=== PATIENT | male | born 1965 | race Two or more races ===

== ENCOUNTER 2023-09-04 09:32 | Outpatient (AMB) | payer OTHER, SELFPAY ==
--- NOTE | 2023-09-04 09:39 | A.OFFPC_ITS ---
Vital Signs 09/04/23 09:46 Height 5 ft 10 in Weight 251 lb 4 oz BMI 36.0 BP 124/76 Blood Pressure Location Rt brachial Position Sitting Respiration 13 Pulse 69 Pulse Source Pulse Oximeter Temp 97 F Temp Source Temporal Artery Scan Pulse Oximetry (%) 97 Oxygen Delivery Method Room Air Intake Visit Reasons: est Care Bander Operator Required: Yes Bander Operator Name: [id number] ([id number]) Accompanied by: Spouse Allergies No Known Allergies Allergy (Verified 09/04/23 10:00) Medication List - Last Reconciled 09/04/23 by Demetria Mireles CNP No Known Home Meds Tobacco use date assessed: 09/04/23 Dental Screening Dental Screen Date: 09/04/23 Did you have a dental visit in the last 12 months?: Yes Did you have a dental problem in the last 6 months where you did not have access to dental care?: No Was dental information given to patient?: Patient has dentist HPI HPI Comments History of Present Illness Details New patient 57-year-old Japanese-speaking male, accom panied by his , presents to establish care Prior PCP:?Does not recall name of practice or PCP Last office visit/CPE: About 5 years Acute issue(s): Reports intermittent right shoulder pain radiating down to his arm, right knee pain , and low back pain for the past 2 months. He notes that he worked in forestry for 25 years while and climbed [place], [facility] [place]. He currently does electrical work in the railway. He has been taking Naproxen and applying ice with some relief. He attributes his symptoms to strenuous posture related to his current and previous jobs. He notes that the knee is the most bothersome. No acute symptoms at this time Not on prescription medications PMHx: None SurgHx: None FHx: Father: Alzheimer's SocHx: Nonsmoker. Drinks alcohol occasionally. No recreational drugs. Last colonoscopy 5 years ago: normal Interpretation by professional entry engineer via electronic tablet [facility] Medical History (Updated 09/04/23 @ 10:56 by Demetria Mireles CNP) Back pain Knee pain Surgical History (Updated 09/04/23 @ 10:16 by Ciera Liu MA) H/O colonoscopy Family History (Updated 09/04/23 @ 10:18 by Ciera Liu MA) Father AD (Alzheimer's disease) Social History Housing: House Patient Tobacco Use Status: Never used Tobacco e-Cigarette/Vaping Use: Never Used service: No Current occupational status: employed Current occupation: Home Sales Consultant for [employer] Cognitive needs: No Hearing needs: No Vision needs: No Questionnaire PHQ-9 Over the last 2 weeks, how often have you been bothered by any of the following problems? 1. Little interest or pleasure in doing things: not at all 2. Feeling down, depressed, or hopeless: several days 3. Trouble falling or staying asleep, or sleeping too much: not at all 4. Feeling tired or having little energy: nearly every day 5. Poor appetite or overeating: not at all 6. Feeling bad about yourself - or that you are a failure or have let yourself or your family down: several days 7. Trouble concentrating on things, such as reading the newspaper or watching television: not at all 8. Moving or speaking so slowly that other people could have noticed. Or the opposite - being so fidgety or restless that you have been moving around a lot more than usual: not at all 9. Thoughts that you would be better off or of hurting yourself in some way: not at all Total score: 5 Depression Screening Interpretation: Positive Depression Screening Done: Yes 36493 - PHQ-9 Billing: Yes Source: Developed by Drs. Matt Hall, Poppy Espinoza, Clyde Johnson and colleagues, with an educational todd from [employer]. Thrive Questionnaire Date Thrive assessed: 09/04/23 I am a: Patient What is your living situation today?: I have a steady place to live Within the past 12 months, did the food you bought not last and you didn't have the money to get more?: Never true Within the past 12 months, did you worry whether your food would run out before you got money to buy more?: Never true Do you have trouble paying for medicines?: No Do you have trouble getting transportation to medical appointments?: No Do you have trouble paying your heating and electricity bill?: No Do you have trouble taking care of your child, family member or friend?: No Do you have trouble with day-to-day activities such as bathing, preparing meals, shopping, managing finances, etc.?: No Are you currently unemployed and looking for a job?: No Are you interested in more education?: No Please select the resources that you would like help with: None Currently or been in a relationship where the following occur: no concerns reported THRIVE Score: 0 AUDIT C Alcohol Use Questionnaire (AUDIT-C) 1. How often do you have a drink containing alcohol?: Monthly or less 2. How many drinks containing alcohol do you have on a typical day when you are drinking?: 1 or 2 3. How often do you have six or more drinks on one occasion?: Never Total Score: 1 DERIK-7 AMB Questionnaire DERIK-7 Date DERIK - 7 assessed: 09/04/23 Feeling nervous, anxious, or on edge: 0 = Not at all Not being able to stop or control worryin = Not at all Worrying too much about different things: 0 = Not at all Trouble relaxin = Not at all Being so restless that it is hard to sit still: 0 = Not at all Becoming easily annoyed or irritable: 2 = More than half the days Feeling afraid as if something awful might happen: 0 = Not at all Total DERIK-7 score (0-4 normal; 5-9 mild; 10-14 moderate; 15-21 severe): 2 Source: Developed by Drs. Matt Hall, Poppy Espinoza, Clyde Johnson and colleagues, with an educational todd from [employer]. DERIK-7 Assessment Billing DERIK-7 Assessment Tool: DERIK-7 Assessment 24824 Review of Systems Const Details: Const Denies chills, Denies fatigue, Denies fever(s), Denies headache(s) and Denies weakness ENT Denies dizziness and Denies headache(s) Card Denies chest pain, Denies lightheadedness, Denies dyspnea and Denies other (Palpitations) Resp Denies cough, Denies dyspnea, Denies wheezing and Denies other ( shortness of breath) GI Denies abdominal pain, Denies melena, Denies hematochezia, Denies change in bowel habits, Denies dyspepsia and Denies nausea Denies hematuria and Denies dysuria Musc Reports as per HPI Skin/Breast Denies rash, Denies unusual bruising and Denies wounds Neuro Denies abnormal gait, Denies dizziness, Denies headache(s), Denies memory loss, Denies numbness, Denies Sensory deficit (Neuro), Denies tingling and Denies weakness Psych Denies anxiety, Denies depression, Denies memory loss Endo Denies cold intolerance, Denies fatigue, Denies heat intolerance, Denies polydipsia and Denies polyuria Aller/Immun Denies wheezing Physical exam (Primary Care) Vital Signs: Last Vital Signs Temp 97 F 09/04/23 09:46 Pulse 69 09/04/23 09:46 Resp 13 09/04/23 09:46 BP 124/76 09/04/23 09:46 Pulse Ox 97 09/04/23 09:46 Oxygen Delivery Method Room Air 09/04/23 09:46 BMI result Body Mass Index 36.0 Tobacco/Smoking Status: Tobacco use Status Tobacco use date assessed 09/04/23 09/04/23 09:59 Patient Tobacco Use Status Never used Tobacco 09/04/23 09:59 e-Cigarette/Vaping Use Never Used 09/04/23 09:59 PHQ-9: PHQ-9 Score PHQ-9: Total score 5 09/04/23 10:28 Depression Screening Interpretation: Positive Thrive Assessment: Date of Thrive Assessment Date Thrive assessed 09/04/23 09/04/23 10:28 Currently or been in a relationship where the following occur: no concerns reported Const Other: General: no acute distress and well developed Nutritional Appearance: well nourished Orientation/consciousness: patient oriented x3 HENMT Head: Yes normocephalic and Yes atraumatic Eyes General: appearance normal, both eyes and all related structures Pupils: Equal, round and reactive pupils present EOM: EOMs intact bilaterally Resp Effort & Inspection: normal respiratory effort Auscultation: clear to auscultation bilaterally Cardio Rate: regular rate Rhythm: regular rhythm Heart sounds: S1 normal heart sound present, S2 normal heart sound present, no gallops, no murmurs and no rubs GI Palpation (GI): No Abdominal aortic bruit present, Soft to palpation, nontender, No hepatosplenomegaly present and No Rebound tenderness present Auscultation: normal bowel sounds General: Yes no CVA tenderness Back/Spine/Pelvis Back: no CVA tenderness Cervical Spine: cervical ROM normal and No Cervical spine tenderness Thoracic/Lumbar Spine: thoraco-lumbar ROM normal, No pain with thoraco-lumbar ROM, No thoracic spinal tenderness and No lumbar spinal tenderness Extrem General: Yes normal to inspection, No edema and No calf tenderness Skin General: warm and dry. Normal skin color. Normal skin turgor Neuro General: patient oriented x3, gait normal and no focal neuro deficit Cranial nerves: Yes Equal, round and reactive pupils present Cognition (Neuro): normal cognition Gait exam (Neuro): Normal gait present Sensory Exam: No Sensory deficit (Neuro) Psych Appearance: grossly normal Affect: normal affect Attitude: cooperative Thought process: Normal thought process present Assessment and Plan Assessment & Plan (1) Right knee pain: Code(s): M25.561 - Pain in right knee Plan: Reports intermittent right shoulder pain radiating down to his arm, right knee pain , and low back pain for the past 2 month; likely related to poor posture during work No visible signs of injury or trauma noted No tenderness with palpation Tendinitis or arthritis is likely Naproxen as needed Warm/cold compresses encouraged Instructed on proper body mechanics Referred to physical therapy for right knee pain Follow-up in 1 month for an extended physical exam and labs review Return sooner with worsening or new symptoms Verbalized understanding and agreed with treatment plan (2) Right shoulder pain: Code(s): M25.511 - Pain in right shoulder Plan: As above (3) Low back pain: Code(s): M54.50 - Low back pain, unspecified Plan: As above (4) Laboratory tests ordered as part of a complete physical exam (CPE): Code(s): Z00.00 - Encounter for general adult medical examination without abnormal findings Plan: Fasting labs ordered in preparation of a complete physical exam. Advised to fast for at least 10 hours before getting labs drawn. May drink water Verbalized understanding and agreed with treatment plan. Orders: Orders Complete Blood Count Auto Diff Today Z00.00 - Encounter for general adult medical examination without abnormal findings Comprehensive [place]. Panel Fast Today Z00.00 - Encounter for general adult medical examination without abnormal findings Lipid Panel Today Z00.00 - Encounter for general adult medical examination without abnormal findings TSH reflex Free T4 Today Z00.00 - Encounter for general adult medical examination without abnormal findings UA CC w/rflx Micro + Cult Today Z00.00 - Encounter for general adult medical examination without abnormal findings PSA, Ultra Sensitive Today Z00.00 - Encounter for general adult medical examination without abnormal findings PT Evaluation and Treatment Today M25.561 - Pain in right knee Coding Level of Care Code New Pt Level 4 (10129) Diagnoses Right knee pain M25.561 Right shoulder pain M25.511 Low back pain M54.50 Laboratory tests ordered as part of a complete physical exam (CPE) Z00.00 Additional Codes DERIK-7 Assessment Billing - DERIK-7 Assessment Tool: DERIK-7 Assessment 50847 ([id number])
[2023-09-04 09:46] VITALS: BP 124/76; PULSE 69; RESP 13; TEMP 36.1; O2SAT 97; BMI 36.0
== END 2023-09-04 11:17 | disposition home or self-care (01) ==
PROVIDERS: Visit Provider Nurse Practitioner Family
DX: M25.561 Pain in right knee (principal); M25.511 Pain in right shoulder; M54.50 Low back pain, unspecified; Z00.00 Encounter for general adult medical examination without abnormal findings
CPT/HCPCS: 99204

== ENCOUNTER 2023-09-04 11:27 | Outpatient (REF) | payer OTHER, SELFPAY ==
[2023-09-04 14:24] LABS: MANUAL DIFF FLAG NO
[2023-09-04 14:27] LABS: Appearance Urine Clear; Color Urine Yellow; Glucose Urine UA Negative (Negative); Leukocyte Esterase Urine Negative (Negative); Nitrite Urine Negative (Negative); PH 6.5 (5.0-9.0); Specific Gravity - Urine 1.025 (1.005-1.025); Urine Blood Negative (Negative); Urine Ketones Negative (Negative); Urine Protein Negative (Neg-Trace)
[2023-09-04 14:36] LABS: Basophils Percent Auto 0.4 % (0-2); Eosinophils Absolute Auto 0.1 X10*3/uL (0.0-0.4); Eosinophils Percent Auto 1.1 % (0-4); Hematocrit 48.5 % (42.0-52.0); Hemoglobin 16.1 g/dl (14.0-18.0); Imm Gran Abs Auto 0.05 X10*3/uL (0.00-0.03); Imm Gran Pct Auto 0.7 % (0.0-0.4); Lymphocytes Absolute Auto 2.8 X10*3/uL (1.2-4.9); Lymphocytes Percent Auto 37.7 % (20-40); Mean Corpuscular HGB Conc 33.2 g/dl (31.0-36.0); Mean Corpuscular Hemoglobin 29.8 pg (27.0-33.0); Mean Corpuscular Volume 89.6 fL (80.0-98.0); Mean Platelet Volume 11.3 fL (9.4-12.4); Monocytes Absolute Auto 0.6 X10*3/uL (0.1-1.2); Monocytes Percent Auto 7.7 % (2-11); Neutrophils Absolute Auto 3.9 x10*3/uL (2.0-8.3); Neutrophils Percent Auto 52.4 % (45-73); Platelet Count 212 X10*3/uL (160-400); Red Blood Count 5.41 X10*6/uL (4.60-5.80); Red Cell Distribution Width 13.6 % (11.0-16.0); White Blood Count 7.5 X10*3/uL (4.8-10.8)
[2023-09-04 15:07] LABS: Alanine Aminotransferase 22 U/L (0-40); Albumin Level 4.2 g/dL (3.5-5.0); Alkaline Phosphatase 89 U/L (39-117); Anion Gap 12 (12-20); Aspartate Amino Transferase 21 U/L (5-37); Blood Urea Nitrogen 14 mg/dL (9-16); Calcium 9.6 mg/dL (8.4-10.2); Carbon Dioxide 29 mmol/L (22-29); Chloride 106 mmol/L (96-108); Cholesterol 194 mg/dL (<200); Estimated Glomerular Filt Rate > 60; Glucose Fasting 85 mg/dL (60-99); HDL Cholesterol 57 mg/dL (>40); LDL Cholesterol Calculated 114 mg/dL (<100); Potassium 4.2 mmol/L (3.3-5.1); Sodium 143 mmol/L (135-145); Total Protein 7.8 g/dL (6.5-8.0); Triglycerides 119 mg/dL (<150)
[2023-09-04 15:26] LABS: TSH reflex Free T4 0.83 uIU/mL (0.32-4.0)
[2023-09-08 19:39] LABS: PSA, Ultra Sensitive 0.55 ng/mL
== END 2023-09-04 11:28 | disposition home or self-care (01) ==
LOC: HO.WFDLDS 11:27
PROVIDERS: Visit Provider Nurse Practitioner Family
DX: Z00.00 Encounter for general adult medical examination without abnormal findings (principal); Z12.5 Encounter for screening for malignant neoplasm of prostate; Z13.6 Encounter for screening for cardiovascular disorders
CPT/HCPCS: 36415; 80053; 80061; 81003; 84153; 84443; 85025

== ENCOUNTER 2023-10-09 08:57 | Outpatient (AMB) | payer BC, SELFPAY ==
[2023-10-09 09:06] VITALS: BP 136/80; PULSE 72; RESP 14; TEMP 36.4; O2SAT 97; BMI 36.0
--- NOTE | 2023-10-09 09:06 | A.OFFPC_ITS ---
Vital Signs 10/09/23 09:06 Height 5 ft 10 in Weight 251 lb BMI 36.0 BP 136/80 Blood Pressure Location Lt brachial Position Sitting Respiration 14 Pulse 72 Pulse Source Pulse Oximeter Temp 97.5 F Temp Source Temporal Artery Scan Pulse Oximetry (%) 97 Oxygen Delivery Method Room Air Intake Visit Reasons: CPE Straight Truck Driver Required: Yes Straight Truck Driver Name: [id number] Accompanied by: Self / Same As Patient Allergies No Known Allergies Allergy (Verified 10/09/23 09:18) Medication List - Last Reconciled 10/09/23 by Demetria Mireles CNP No Known Home Meds Tobacco use date assessed: 09/04/23 Dental Screening Dental Screen Date: 10/09/23 Did you have a dental visit in the last 12 months?: No Did you have a dental problem in the last 6 months where you did not have access to dental care?: No Was dental information given to patient?: Yes HPI HPI Comments History of Present Illness Details 57-year-old Occitan speaking male, prese nts for an extended physical exam He has history of right shoulder pain, right knee pain, and low back pain. He takes naproxen as needed for pain. He established care last month and was referred to physical therapy. He has not been contacted for an appointment He requests an order for Naproxen for right knee pain He states that his last eye exam was a year ago with [facility]. He notes history of retinal issues of the left eye [place], [facility] [place] 5-7 years ago He notes that he is up-to-date on the flu vaccine He states that he is vaccinated for shingles SocHx: Nonsmoker. Drinks alcohol occasionally. No recreational drugs. Last colonoscopy 6 years ago from [facility]: normal Interpretation by professional life skills coordinator via electronic tablet [facility] Medical History (Updated 10/09/23 @ 09:48 by Demetria Mireles CNP) Back pain Knee pain Surgical History (Updated 09/04/23 @ 10:16 by JUAN MANUEL Christine) H/O colonoscopy Family History (Updated 09/04/23 @ 10:18 by JUAN MANUEL Christine) Father AD (Alzheimer's disease) Social History Household Members: Family Both parents involved: No Caregiver staying overnight: No Housing: House Are you a primary youth care worker to a significant other at home: No Do you presently have visiting nurse or other home services: No 75 years or older and lives alone: No Patient Tobacco Use Status: Never used Tobacco e-Cigarette/Vaping Use: Never Used service: No Current occupational status: employed Current occupation: Supervisor [employer] for [employer] Cognitive needs: No Hearing needs: No Vision needs: Yes Questionnaire PHQ-9 Over the last 2 weeks, how often have you been bothered by any of the following problems? 1. Little interest or pleasure in doing things: not at all 2. Feeling down, depressed, or hopeless: not at all 3. Trouble falling or staying asleep, or sleeping too much: not at all 4. Feeling tired or having little energy: not at all 5. Poor appetite or overeating: not at all 6. Feeling bad about yourself - or that you are a failure or have let yourself or your family down: not at all 7. Trouble concentrating on things, such as reading the newspaper or watching television: not at all 8. Moving or speaking so slowly that other people could have noticed. Or the opposite - being so fidgety or restless that you have been moving around a lot more than usual: not at all 9. Thoughts that you would be better off or of hurting yourself in some way: not at all Total score: 0 Depression Screening Interpretation: Negative Depression Screening Done: Yes 26188 - PHQ-9 Billing: Yes Source: Developed by Drs. Matt Hall, Poppy Espinoza, Clyde Johnson and colleagues, with an educational todd from [employer]. Thrive Questionnaire Date Thrive assessed: 10/09/23 I am a: Patient What is your living situation today?: I have a steady place to live Within the past 12 months, did the food you bought not last and you didn't have the money to get more?: Never true Within the past 12 months, did you worry whether your food would run out before you got money to buy more?: Never true Do you have trouble paying for medicines?: No Do you have trouble getting transportation to medical appointments?: No Do you have trouble paying your heating and electricity bill?: No Do you have trouble taking care of your child, family member or friend?: No Do you have trouble with day-to-day activities such as bathing, preparing meals, shopping, managing finances, etc.?: No Are you currently unemployed and looking for a job?: No Are you interested in more education?: No Please select the resources that you would like help with: None Currently or been in a relationship where the following occur: no concerns reported THRIVE Score: 0 AUDIT C Alcohol Use Questionnaire (AUDIT-C) 1. How often do you have a drink containing alcohol?: Monthly or less 2. How many drinks containing alcohol do you have on a typical day when you are drinking?: 1 or 2 3. How often do you have six or more drinks on one occasion?: Never Total Score: 1 DERIK-7 AMB Questionnaire DERIK-7 Date DERIK - 7 assessed: 10/09/23 Feeling nervous, anxious, or on edge: 0 = Not at all Not being able to stop or control worryin = Not at all Worrying too much about different things: 0 = Not at all Trouble relaxin = Not at all Being so restless that it is hard to sit still: 0 = Not at all Becoming easily annoyed or irritable: 0 = Not at all Feeling afraid as if something awful might happen: 0 = Not at all Total DERIK-7 score (0-4 normal; 5-9 mild; 10-14 moderate; 15-21 severe): 0 Source: Developed by Drs. Matt Hall, Poppy Espinoza, Clyde Johnson and colleagues, with an educational todd from [employer]. DERIK-7 Assessment Billing DERIK-7 Assessment Tool: DERIK-7 Assessment 92902 Review of Systems Const Details: Denies chills, Denies fatigue, Denies fever(s), Denies headache(s) and Denies weakness HEENT Denies change in vision, Denies dizziness, Denies headache(s), Denies hearing loss, Denies nasal congestion, Denies sinus pain, Denies sinus pressure and Denies sore throat Card Denies chest pain, Denies lightheadedness, Denies dyspnea and Denies other (palpitations) Resp Denies cough, Denies dyspnea and Denies wheezing GI Denies abdominal pain, Denies melena, Denies hematochezia, Denies change in bowel habits, Denies dyspepsia and Denies nausea Denies hematuria and Denies dysuria Musc Denies abnormal gait, Denies myalgias, Denies arthralgias, Denies numbness and Denies tingling Skin/Breast Denies rash, Denies unusual bruising and Denies wounds Neuro Denies abnormal gait, Denies dizziness, Denies headache(s), Denies memory loss, Denies numbness, Denies Sensory deficit (Neuro), Denies tingling and Denies weakness Psych Denies anxiety, Denies depression and Denies memory loss Endo Denies cold intolerance, Denies fatigue, Denies heat intolerance, Denies polydipsia and Denies polyuria Randy/Lymph Denies easy bleeding and Denies easy bruising Aller/Immun Denies wheezing Physical exam (Primary Care) Tobacco/Smoking Status: Tobacco use Status Tobacco use date assessed 09/04/23 09/04/23 09:59 Patient Tobacco Use Status Never used Tobacco 09/04/23 09:59 e-Cigarette/Vaping Use Never Used 09/04/23 09:59 Depression Screening Interpretation: Negative Thrive Assessment: Date of Thrive Assessment Date Thrive assessed 09/04/23 09/04/23 10:28 Currently or been in a relationship where the following occur: no concerns reported Const Other: General: no acute distress, well developed, alert and awake Nutritional Appearance: well nourished Orientation/consciousness: patient oriented x3 HENMT Head: Yes normocephalic and Yes atraumatic Ears: hearing grossly normal bilaterally and TM's normal bilaterally General nose exam: Normal external nose present and Normal nares present Mouth: Normal oral and palatal mucosa present and moist mucous membranes Teeth and gingiva: dentition normal Throat: Yes oropharynx normal Eyes Pupils: Equal, round and reactive pupils present and Pupil accommodation reflex normal EOM: EOMs intact bilaterally Neck Neck: Yes normal visual inspection, Yes no lymphadenopathy and Yes trachea midline Thyroid: Thyroid normal Carotids: no bruits Lymphatic: no lymphadenopathy noted Chest Chest palpation & inspection: normal inspection of the chest Resp Effort & Inspection: normal respiratory effort Auscultation: clear to auscultation bilaterally Cardio Rate: regular rate Rhythm: regular rhythm Heart sounds: S1 normal heart sound present, S2 normal heart sound present, no gallops, no murmurs and no rubs Bruits: no abdominal aortic bruits and no carotid bruits GI Palpation (GI): No Abdominal aortic bruit present, Soft to palpation, nontender, No hepatosplenomegaly present and No Rebound tenderness present Auscultation: normal bowel sounds General: Yes no CVA tenderness Back/Spine/Pelvis Back: no CVA tenderness Cervical Spine: cervical ROM normal and No Cervical spine tenderness Thoracic/Lumbar Spine: thoraco-lumbar ROM normal, No pain with thoraco-lumbar ROM, No thoracic spinal tenderness and No lumbar spinal tenderness Skin General: warm and dry. Normal skin color. Normal skin turgor Lesions: no lesions Rashes: no rashes Trauma: no lacerations or abrasions Wounds: no wounds Nails: normal Neuro General: patient oriented x3, gait normal and CN's II-XI intact bilaterally Cranial nerves: Yes Equal, round and reactive pupils present Cognition (Neuro): normal cognition Gait exam (Neuro): Normal gait present Motor exam (neuro): 5/5 motor strength present throughout Sensory Exam: No Sensory deficit (Neuro) Deep tendon reflexes (DTR's): Right patellar reflex intensity grade: 2+ and Left patellar reflex intensity grade: 2+ Extrem General: Yes normal to inspection, No edema and No calf tenderness Psych Appearance: grossly normal Affect: normal affect Attitude: cooperative Thought process: Normal thought process present Assessment and Plan Assessment & Plan (1) Normal physical examination, routine: Code(s): Z00.00 - Encounter for general adult medical examination without abnormal findings Plan: No significant physical restrictions or limitations noted Continue current treatment regimen Encouraged to establish with a dentist for routine dental care He notes he is followed by [facility] and his last eye exam was a year ago. Will request ophthalmology record from [facility] Recent labs reviewed with the patient - unremarkable findings Advised to sign a release of information for [facility] for his last colonoscopy record Encouraged to schedule his next physical exam for a year from today Return with symptoms or concerns Verbalized understanding and agreed with treatment plan (2) Obesity (BMI 35.0-39.9 without comorbidity): Code(s): E66.9 - Obesity, unspecified Plan: He currently weighs 251 lb, BMI is 36.0 Referred to [facility] anesthesia director/dietitian as requested Healthy diet and routine exercise encouraged Follow-up with symptoms or concerns Verbalized understanding and agreed with the plan (3) Right knee pain: Code(s): M25.561 - Pain in right knee Plan: No acute symptoms Naproxen 500 mg twice daily ordered. Advised to take with meals. Instructed on the risks, benefits, and potential adverse reactions of the medication Follow-up with symptoms or concerns Verbalized understanding and agreed with treatment plan (4) Vaccine counseling: Code(s): Z71.85 - Encounter for immunization safety counseling Plan: He has never been vaccinated for shingles and not up-to-date on the current flu vaccine. He declines the flu vaccine Instructed on importance of vaccinations and encouraged to get vaccinated for flu and shingles. He may request a vaccines from his local pharmacy Orders: Referrals Nutrition/Dietitian Referral E66.9 - Obesity, unspecified Medications: New naproxen 500 mg PO BID 30 days PRN 30 tabs 2RF pain Coding Level of Care Code Est Pt Level 4 (50419) Est Pt Prev Care 40-64y(23051) Diagnoses Normal physical examination, routine Z00.00 Obesity (BMI 35.0-39.9 without comorbidity) E66.9 Right knee pain M25.561 Vaccine counseling Z71.85 Additional Codes DERIK-7 Assessment Billing - DERIK-7 Assessment Tool: DERIK-7 Assessment 12782 ([id number])
== END 2023-10-09 09:45 | disposition home or self-care (01) ==
PROVIDERS: Visit Provider Nurse Practitioner Family
DX: Z00.00 Encounter for general adult medical examination without abnormal findings (principal); M25.561 Pain in right knee; E66.9 Obesity, unspecified; Z68.36 Body mass index [BMI] 36.0-36.9, adult; Z71.85 Encounter for immunization safety counseling
CPT/HCPCS: 99213; 99396